=== PATIENT | male | born 1985 | race African-American/Black ===

== ENCOUNTER 2019-06-29 11:29 | Inpatient (IN) | payer OTHER ==
[2019-06-29 13:39] VITALS: BMI 24.0
--- NOTE | 2019-06-29 14:55 | HP ---
COWS - Scale Resting Pulse: 0= [place] 80 or Below Sweatin= No chills or Flushing Restless Observation: 0= Sits Still Pupil Size: 0= Normal to Room Light Bone or Joint Aches: 0= None Runny Nose/ Eye Tearin= None GI Upset > 30mins: 0= None Tremor Observation: 0= None Yawning Observation: 0= None Anxiety or Irritability: 0= None Goose Flesh Skin: 0=Smooth Skin COWS Score: 0 CIWA Score Nausea/Vomitin-No Nausea/No Vomiting Muscle Tremors: None Anxiety: 0-No Anxiety, at Ease Agitation: 0-Normal Activity Paroxysmal Sweats: No Perspiration Orientation: 0-Oriented Tacttile Disturbances: 0-None Auditory Disturbances: 0-None Visual Disturbances: 0-None Headache: 0-None Present CIWA-Ar Total Score: 0 - Admission Criteria OASAS Guidelines: Admission for Medically Managed Detox: Requires at least one of the followin. CIWA greater than 12 2. Seizures within the past 24 hours 3. Delirium tremens within the past 24 hours 4. Hallucinations within the past 24 hours 5. Acute intervention needed for co occurring medical disorder 6. Acute intervention needed for co occurring psychiatric disorder 7. Severe withdrawal that cannot be handled at a lower level of care (continued vomiting, continued diarrhea, abnormal vital signs) requiring intravenous medication and/or fluids 8. Admission ROS [facility] Allergies/Adverse Reactions: Allergies Allergy/AdvReac Type Severity Reaction Status Date / Time No Known Allergies Allergy Verified 06/29/19 13:33 History of Present Illness: pt here requesting detox from etoh use , reports 1x 6-pk/beer / day intermittently since age 24 ,3 d/week , denies symptoms if not drinking , latest use today current symptoms as above . reports he was referred to this facility by the counselor in his building . cocaine - 2-3 bags via inhalation x 2 days / week since 1 yr ago cannabis - since age 23 daily , 10 joint s/ day tobacco : 15 cigs/day heroin - 3 d/week 10 bags via inhalation , latest use 2 days ago pmhx : denies pshx : denies psych : denies meds : denies Shx ; lives in building . , has 2 daughters ages 15 & 16 w/ bio mother . Exam Limitations: No Limitations - Ebola screening Have you traveled outside of the country in the last 21 days: No Have you had contact with anyone from an Ebola affected area: No Do you have a fever: No - Review of Systems Constitutional: No Symptoms Reported EENT: reports: No Symptoms Reported Respiratory: reports: No Symptoms reported Cardiac: reports: No Symptoms Reported GI: reports: No Symptoms Reported : reports: No Symptoms Reported Musculoskeletal: reports: Other (right hand pain s/p punching wall Wednesday , did not seek medical attention) Neuro: reports: No Symptoms reported Endocrine: reports: No Symptoms Reported Psychiatric: reports: Orientated x3 Patient History - Smoking Cessation Smoking history: Current every day smoker Have you smoked in the past 12 months: Yes Hx Chewing Tobacco Use: No Initiated information on smoking cessation: Yes 'Breaking Loose' booklet given: 06/29/19 - Substances abused Alcohol Substance route: Oral Frequency: Daily Amount used: 6 pack of 24oz beer Age of first use: 24 Date of last use: 06/29/19 Heroin Substance route: Inhalation Frequency: 3-6 times per week Amount used: 3 bags Age of first use: 34 Date of last use: 06/27/19 Admission Physical Exam S - Vital Signs Vital Signs: Vital Signs - 24 hr 06/29/19 13:31 Temperature 98.5 F Pulse Rate 77 Respiratory 18 Rate Blood Pressure 139/85 - Physical General Appearance: Yes: No Apparent Distress HEENTM: Yes: EOMI, Hearing grossly Normal, Normocephalic, Normal Voice Respiratory: Yes: Chest Non-Tender, Lungs Clear, Normal Breath Sounds, No Respiratory Distress, No Accessory Muscle Use Neck: Yes: No masses,lesions,Nodules, Trachea in good position Cardiology: Yes: Regular Rhythm, Regular Rate, S1, S2 Abdominal: Yes: Non Tender, Soft Musculoskeletal: Yes: Gait Steady Extremities: Yes: Normal Range of Motion, Non-Tender Neurological: Yes: Fully Oriented, Alert, Motor Strength 5/5, Normal Mood/Affect Integumentary: Yes: Warm - Diagnostic (1) Cocaine abuse, episodic use Current Visit: Yes Status: Chronic (2) Nicotine dependence Current Visit: Yes Status: Chronic Qualifiers: Nicotine product type: cigarettes (3) Cannabis dependence Current Visit: Yes Status: Chronic (4) Alcohol abuse, episodic Current Visit: Yes Status: Chronic Breathalyzer - Breathalyzer Breathalyzer: 0.008 Urine Drug Screen - Test Device Lot number: [id number] Expiration date: 02/17/21 - Control Is test valid?: Yes - Results Drug screen NEGATIVE: No Urine drug screen results: THC-Marijuana, JING-Cocaine Inpatient Rehab Admission - Rehab Decision to Admit Inpatient rehab admission?: Yes - Initial Determination Are CD services needed?: Yes Free of communicable disease: Yes Not in need of hospitalization: Yes - Rehab Admission Criteria Previous failed treatment: No Poor recovery environment: Yes Comorbidities: No Lacks judgement: Yes Patient is meeting Inpatient Rehab admission criteria:: Yes
[2019-06-29] MEDS ORDERED: MAG HYDROX/AL HYDROX/SIMETH 30 ML UNIT-DOSE CUP PO PRN (15:00)
[2019-06-29] MEDS ORDERED: MAGNESIUM CITRATE 300 ML BOTTLE PO PRN (15:00)
[2019-06-29] MEDS ORDERED: P-EPHED 60MG/TRIPROLIDI 2.5MG TABLET PO PRN (15:00)
[2019-06-29] MEDS ORDERED: ACETAMINOPHEN 325 MG TABLET (FP) PO PRN (15:00)
[2019-06-29] MEDS ORDERED: MENTHOL/PHENOL 1 EACH UD MM PRN (15:00)
[2019-06-29] MEDS ORDERED: MAGNESIUM HYDROX 2400MG/30ML ORAL SUSPENSION 30 ML CUP PO PRN (15:00)
[2019-06-29] MEDS ORDERED: guaiFENesin 200 MG/10 ML 10 ML UNIT-DOSE CUPS PO PRN (15:00)
[2019-06-29] MEDS: THIAMINE HCL 100 MG TABLET (FP) PO SCH (21:42)
[2019-06-29] MEDS ORDERED: MELATONIN 5 MG TABLETS PO PRN (22:00)
[2019-06-30] MEDS ORDERED: TUBERCULIN PPD 5 TU/0.1ML VIAL ID ONE (06:55)
[2019-06-30] MEDS: IBUPROFEN 400 MG TABLET (FP) PO PRN ×2 (07:00→19:16)
[2019-06-30 10:12] LABS: URINE BILIRUBIN NEGATIVE (NEGATIVE); URINE COLOR YELLOW; URINE GLUCOSE (UA) NEGATIVE (NEGATIVE); URINE KETONE NEGATIVE (NEGATIVE); URINE LEUK ESTERASE NEGATIVE (NEGATIVE); URINE NITRITE NEGATIVE (NEGATIVE); URINE PROTEIN NEGATIVE (NEGATIVE); URINE UROBILINOGEN 0.2 mg/dL (0.2-1.0)
[2019-06-30] MEDS: BACITRACIN 15 GM TUBE TOPICAL OINTMENT TP SCH ×2 (10:17→21:50)
[2019-06-30] MEDS: PRENATAL VITAMINS W/ FOLIC ACID TABLET (FP) PO SCH (10:17)
[2019-06-30 10:29] LABS: URINE APPEARANCE CLEAR
--- NOTE | 2019-06-30 10:34 | PN ---
[facility] Progress Note Note: Patient seen to evaluate right antecubital area after lab draw this am. Patient c/o mild tenderness to area. Laboratory Tests 06/30/19 08:00 Urine Color Yellow Urine Appearance Error Urine pH 5.0 Ur Specific [place] 1.020 Urine Protein Negative Urine Glucose (UA) Negative Urine Ketones Negative Urine Blood Negative Urine Nitrite Negative Urine Bilirubin Negative Urine Urobilinogen 0.2 Ur Leukocyte Esterase Negative Vital Signs Temperature 98 F 06/30/19 09:59 Pulse Rate 75 06/30/19 09:59 Respiratory Rate 18 06/30/19 09:59 Blood Pressure 142/87 06/30/19 09:59 O2 Sat by Pulse Oximetry (%) PE: alert and oriented x 3 skin warm and dry +perrla, eoms intact right antecubital area negative for redness/swelling, vein palpable, no active bleeding ext full rom, amb ad [place] A/P: s/p lab draw will order bacitracin to site bid x 3 days' monitor
[2019-06-30 12:45] LABS: HEMATOCRIT 47.8 % (35.4-49); HEMOGLOBIN 15.3 GM/dL (11.7-16.9); MCH 27.1 pg (25.7-33.7); MEAN CELL VOLUME 84.8 fl (80-96); MEAN PLT VOLUME 10.8 fl (7.5-11.1); PLATELET COUNT 281 K/MM3 (134-434); RBC 5.64 M/mm3 (4.00-5.60); WHITE BLOOD COUNT 6.2 K/mm3 (4.0-10.0)
[2019-06-30 12:51] LABS: ALBUMIN 3.8 g/dl (3.4-5.0); BILIRUBIN,TOTAL 0.6 mg/dL (0.2-1); BLOOD UREA NITROGEN 12.4 mg/dL (7-18); CALCIUM 9.8 mg/dL (8.5-10.1); CREATININE 1.2 mg/dL (0.55-1.3); POTASSIUM 4.3 mmol/L (3.5-5.1); TOT PROT 7.1 g/dl (6.4-8.2)
[2019-06-30] MEDS: THIAMINE HCL 100 MG TABLET (FP) PO SCH (21:50)
[2019-07-01] MEDS: PRENATAL VITAMINS W/ FOLIC ACID TABLET (FP) PO SCH (10:08)
[2019-07-01] MEDS: BACITRACIN 15 GM TUBE TOPICAL OINTMENT TP SCH ×2 (10:09→21:45)
[2019-07-01] MEDS: IBUPROFEN 400 MG TABLET (FP) PO PRN (17:12)
[2019-07-01] MEDS: THIAMINE HCL 100 MG TABLET (FP) PO SCH (21:45)
[2019-07-02 07:00] VITALS: BP 126/92; PULSE 68; TEMP 98
[2019-07-02] MEDS: PRENATAL VITAMINS W/ FOLIC ACID TABLET (FP) PO SCH (10:02)
[2019-07-02] MEDS: BACITRACIN 15 GM TUBE TOPICAL OINTMENT TP SCH (10:02)
--- NOTE | 2019-07-02 10:33 | DS ---
[facility] Rehab Discharge Summary - [facility] Rehab Discharge Summary Admission Date: 06/29/19 Discharge Date: 07/02/19 - History Present History: Alcohol dependence Pertinent Past History: Pt was admitted 2 days ago for detox- but low CIWA score. Pt was admitted to rehab. Pt walked out of 3W unit today. Security called. Pt left the hospital for home. - Discharge Physical Exam Vital Signs: Vital Signs Temperature 98 F 07/02/19 06:59 Pulse Rate 68 07/02/19 06:59 Respiratory Rate 18 07/02/19 06:59 Blood Pressure 126/92 07/02/19 06:59 O2 Sat by Pulse Oximetry (%) - Medication Discharge Medications: Ambulatory Orders NK [No Known Home Medication] 06/29/19 - Discharge Instructions Diet, activity, other medical instructions: Diet: Activity: Other medical instructions: - AMA Additional Comments: pt walked out of unit without notifying staff
== END 2019-07-02 09:37 | disposition left against medical advice (07) | DRG 770 ==
LOC: YASAS 11:29 → Y3W 15:52
PROVIDERS: ADMIT Neuromusculoskeletal Medicine & OMM; ATTEND Neuromusculoskeletal Medicine & OMM
PROC: HZ42ZZZ Group Counseling for Substance Abuse Treatment, Cognitive-Behavioral (ICD-10-PCS; principal; 2019-06-29)
DX: F10.20 Alcohol dependence, uncomplicated (principal); F11.20 Opioid dependence, uncomplicated; F14.10 Cocaine abuse, uncomplicated; F12.20 Cannabis dependence, uncomplicated; F17.210 Nicotine dependence, cigarettes, uncomplicated; S69.81XA Other specified injuries of right wrist, hand and finger(s), initial encounter; W22.09XA Striking against other stationary object, initial encounter; Y93.89 Activity, other specified; Y92.89 Other specified places as the place of occurrence of the external cause; Y99.8 Other external cause status
CPT/HCPCS: 36415; 73130-TC-RT-FY; 80053; 81003; 85027; 86593